=== PATIENT | female | born 1935 | race Asian ===

== ENCOUNTER 2024-12-23 10:48 | Emergency (ER) | payer OTHER, SELFPAY ==
[2024-12-23 11:07] VITALS: BP 171/84
--- NOTE | 2024-12-23 13:44 | ED.GENMED ---
History of Present Illness
General
Chief Complaint: Head Injury
Source: patient
Exam Limitations: none
Time Seen by Provider: 12/23/24 13:05
History of Present Illness
History of Present Illness:
89-year-old female presents to the ER for evaluation of fall. Patient has a bad knee and family reports because of knee fell back hitting her head on a door. This occurred at 7:30 AM. No loss of consciousness. This was witnessed by daughter.
She is not on blood thinners. She denies any headache she does complain of laceration to the back of the head. No extremity injury. She denies any neck pain.
Past History
Past History
ED Past Medical History: HTN
ED Past Surgical History: Other (cataracts)
Social History
Tobacco: Non-smoker
Phy Exam
General Physical Exam
General Presentation: no apparent distress
General age: appears stated age
General Skin: warm and dry
General Habitus: normal
General Mental: alert
General Hydration: appears well hydrated
ENT Exam
ENT Exam: EOMI and neck supple
Eye Exam
Eye Exam: PERRL and EOMI
Eye Exam General: PERRL: bilateral and EOM intact: bilateral
Pupil Exam: Bilateral: round and reactive
Neurological Exam
Neurological Exam: alert, oriented x3, no motor deficits and no sensory deficits
Musculoskeletal Exam
Musculoskeletal Exam: full ROM and other (+2 centimeter vertical laceration to posterior occiput with surrounding hematoma; no bony neck tenderness; full range of motion of extremities)
Skin Exam
Skin Exam: normal color and warm/dry
Psychiatric Exam
Psychiatric Exam: normal mood/affect
Course
Orders/Labs/Results
Orders:
Orders
12/23/24 13:23
CT Head W/o Iv Contrast Urgent
Comment:
Reason For Exam: trauma
12/23/24 13:24
CT Cervical Spine W/o Iv Contr Urgent
Comment:
Reason For Exam: trauma
12/23/24 13:45
Tetanus/Diphth/Acelpertussis [Adacel] 0.5 ml IM .ONCE ONE
Vital Signs
Initial and Last Documented VS:
Initial Vital Signs
Temp Pulse Resp BP Pulse Ox
98.2 F 67 16 171/84 97
12/23/24 11:07 12/23/24 11:07 12/23/24 11:07 12/23/24 11:07 12/23/24 11:07
Last Documented Vital Signs
Temp Pulse Resp BP Pulse Ox
98.2 F 67 16 171/84 97
12/23/24 11:07 12/23/24 11:07 12/23/24 11:07 12/23/24 11:07 12/23/24 13:45
Procedures
Laceration Closure
Occipital:
Status of Wound: clean
Size of Wound in cm: 2
Description of Wound Edges: sharp
Preparation: cleaned with saline
Anesthesia: 1% Lidocaine with epi
Revision/Debridement: irrigate-direct pressure
Type of Closure: single layer closure
Skin Closure Material: skin marko
Number of sutures: 2
MDM/Problems Addressed
Differential Diagnosis Includes:
Not limited to intracranial hemorrhage head injury scalp laceration hematoma
MDM/Problems Addressed:
Patient is an 89-year-old female who presented for mechanical fall hitting the back of her head sustaining a laceration hematoma to the back of her scalp. She has no loss of consciousness witnessed by family. Wound was irrigated with copious
roland normal saline and 2 marko were placed to scalp laceration which resolved bleeding. Will CT head and neck. Tetanus updated. Will plan to DC home once CAT scan
*Radiology
Radiology exam reviewed: radiology read reviewed
*Pulse Oximetry
SaO2: 97
Oxygen Mode of Delivery: Room air
Patient hypoxic: no
*Critical Care Note
Total Time (30-74mins, 75-104mins- exclusive of procedures): Not Applicable
ED Attending Note
-
Portions of this chart may have been created with voice recognition software.� Occasional wrong word or��sound alike� substitutions may have occurred due to the inherent limitations of voice recognition software.
Discharge Plan
Departure
Patient Disposition: Home (Routine Discharge)
Date of Disposition: 12/23/24
Time of Disposition: 15:38
Patient with high blood pressure during this ER visit?: Yes
Condition: Fair
Covid-19: Not Applicable
Discharge Problem:
Head injury, Laceration of scalp
Instructions: Head Injury in Adults (DC), Laceration Repair With Marko (DC), BLOOD PRESSURE
Referrals:
Natacha Rock CRNP [Family Provider, General]
Activity Restrictions/Additional Instructions:
Keep wound clean and dry for 24 hours after 24 hours you may wash twice a day as discussed and apply small layer of antibiotic ointment to the area. Marko are to be removed in 7 days. See family doctor in the next 2 days for wound check
reevaluation. Return if any worsening of symptoms. If needed patient may take Tylenol.
Tetanus was updated today.
Interventions
Interventions:
*Risk Screen - Suicide Last Done: 12/23/24 11:07
*Neglect/Abuse Screening Last Done: 12/23/24 11:07
*Nursing Disposition Last Done: 12/23/24 15:44
ED- Neurological Assessment Last Done: 12/23/24 15:10
ED-Skin Assessment Last Done: 12/23/24 15:10
Discharge Date and Time
Discharge Date/Time: 12/23/24 15:45
Print Language: LITHUANIAN
[2024-12-23] MEDS: ADACEL 0.5 ML IM (14:03)
== END 2024-12-23 15:45 | disposition home or self-care (01) ==
LOC: EMR 10:48
PROVIDERS: EMERGENCY PHYSICIAN Emergency Medicine; FAMILY PHYSICIAN Nurse Practitioner Adult Health
DX: S09.90XA Unspecified injury of head, initial encounter (principal); S01.01XA Laceration without foreign body of scalp, initial encounter; W19.XXXA Unspecified fall, initial encounter; Z23 Encounter for immunization; I10 Essential (primary) hypertension
CPT/HCPCS: 99284; 12001; 90471; 70450; 72125; 90715